=== PATIENT | female | born 1970 | race Caucasian/White ===

== ENCOUNTER → 2021-07-30 | Outpatient (CLI) | payer BC ==
--- NOTE | 2021-07-30 09:07 | KCIC ---
EXAM: Chest, 2 views. HISTORY: Asthma. COMPARISON: None. FINDINGS: 2 views of the chest are obtained. There is no infiltrate, pleural effusion or pneumothorax . The heart is normal in size. There is a calcified granuloma within the right lower lobe. IMPRESSION: No acute pulmonary finding. Electronically signed by: Jennifer Alvarez MD (07/30/2021 9:04 AM) [id number]
== END ==
LOC: KCIC 08:38
PROVIDERS: ATTEND Nurse Practitioner Family
DX: J84.10 Pulmonary fibrosis, unspecified (principal); J45.41 Moderate persistent asthma with (acute) exacerbation
CPT/HCPCS: 71046